=== PATIENT | female | born 1980 | race African-American/Black ===

== ENCOUNTER 2017-03-25 21:47 | Emergency (ER) | payer OTHER ==
[~2017-03-25] VITALS: Ht 175.3 cm; Wt 93.0 kg
[~2017-03-25 21:47] MED LIST: AMOXICILLIN/CL875 MG OR; AMOXICILLIN500 MG PO; AUGMENTIN875 MG PO; BP MED; CLARITIN10 M1 PO; COZAAR100 MG PO; CYCLOBENZAPR10 MG PO; FIORICET PO; FLAGYL500 MG OR; GLIPIZIDE5 M2 OR; GLIPIZIDE5 M2 PO; GLIPIZIDE5 MG PO; GLUCOMETER; GLUCOTROL XL2.5 MG PO; HYDROCHLOROT25 MG PO; INDERAL 20MG TA20 MG PO; LANCETS SC; LISINOP/HCTZ1 TAB PO; LOPRESSOR50 M1 OR; METFORMIN HCL1000 MG OR; METFORMIN1000 MG PO; METFORMIN500 M1 PO; METFORMIN500 MG PO; METHOCARBAM500 MG PO; MONODOX100 MG OR; MOTRIN800 MG/TAB PO; NAPROSYN500 MG OR; NORVASC10 MG PO; PHENERGAN25 MG/ML IM; PRAVASTATIN SOD20 MG PO; PRAVASTATIN20 MG PO; TEST STRIPS SC; TORADOL IM; ULTRAM50 M1 PO; cozaar OR
[2017-03-25] MEDS ORDERED: FERROUS SULF325 M3 PO (22:16)
[2017-03-25] MEDS ORDERED: GABAPENTIN100 MG PO (22:17)
[2017-03-25 22:25] LABS: HEMOGLOBIN 13.6 g/dl (12.0-16.0); IMMATURE GRANULOCYTES 0.3 % (0.0-1.0); MEAN CORPUSCULAR HGB 28.9 pG CALC (26.0-32.0); MEAN CORPUSCULAR HGB CONC 34.9 g/L CALC (32.0-36.0); NEUT# 6.72 thou/uL (2.00-7.15); RED BLOOD COUNT 4.7 mill/uL (4.20-5.60); RED CELL DISTRI WIDTH 13.9 % (11.5-15.5)
[2017-03-25 22:43] LABS: ALBUMIN 4.7 g/dL (3.2-5.0); ALKALINE PHOSPHATASE 82 u/l (38-126); ANION GAP 19 (6-22 (CALC)); BILIRUBIN, TOTAL 1.3 mg/dL (0.0-1.4); BUN 12 mg/dL (7-17); BUN/CREATININE RATIO 17 (12-20 (CALC)); CALCIUM 9.8 mg/dL (8.4-10.2); CARBON DIOXIDE 24 mmol/l (22-30); CHLORIDE 96 mmol/l (95-108); CREATININE 0.7 mg/dL (0.5-1.0); GFR > 60 ML/MIN (>=60 (CALC)); GFR FOR AFR.AMER. > 60 ML/MIN (>=60 (CALC)); GLUCOSE 355 mg/dL (65-105); POTASSIUM 4.1 mmol/l (3.5-5.1); SGOT/AST 26 u/l (14-36); SGPT/ALT 32 u/l (9-52); SODIUM 135 mmol/l (137-146); TOTAL PROTEIN 8.2 g/dL (6.3-8.2)
[2017-03-25 22:55] LABS: MYOGLOBIN 48 ng/mL (0 - 62)
[2017-03-26] MEDS ORDERED: NAPROSYN500 MG PO (00:41)
[2017-03-26] MEDS ORDERED: ATIVAN0.5 MG PO (01:05)
[2017-03-26 01:30] VITALS: BP 126/81
== END 2017-03-26 01:35 | disposition home or self-care (01) | DRG 313 ==
LOC: ED 21:47
DX: R07.89 Other chest pain (principal); E11.65 Type 2 diabetes mellitus with hyperglycemia; I10 Essential (primary) hypertension; R51 Headache; F41.9 Anxiety disorder, unspecified; E78.5 Hyperlipidemia, unspecified